=== PATIENT | male | born 1995 | race Caucasian/White ===

== ENCOUNTER 2017-03-19 15:29 | Emergency (ER) | payer OTHER ==
[2017-03-19 15:36] VITALS: BP 120/75
--- NOTE | 2017-03-19 16:47 | ED Physician Documentation ---
History of Present Illness - Stated complaint Stated Complaint: CHEST PX/COUGH - Chief complaint Chief Complaint: General - History obtained from History obtained from: Patient - History of Present Illness Timing: Other (Previously healthy 21-year-old woman has been sick for a week with cough and cold symptoms, rhinorrhea, but no fevers. The cough is productive. Starting yesterday he has focal left-sided chest pain especially with deep breathing and coughing. No shortness of breath.) Review of Systems Constitutional: denies: Fever, Chills Ears: reports: Ear pain Nose: reports: Rhinorrhea / runny nose, Congestion Throat: denies: Oral lesions / sores, Sore throat Cardiac: reports: Chest pain / pressure Respiratory: reports: Cough. denies: Dyspnea PD PAST MEDICAL HISTORY - Present Medications Home Medications: Ambulatory Orders Medication Instructions Recorded Confirmed guaiFENesin/CODEINE [Robitussin AC] 5 - 10 ml PO Q6H PRN #120 ml 03/19/17 - Allergies Allergies/Adverse Reactions: Allergies Allergy/AdvReac Type Severity Reaction Status Date / Time No Known Drug Allergies Allergy Verified 03/19/17 15:36 PD ED PE NORMAL - Vitals Vital signs reviewed: Yes - General General: Alert and oriented X 3, No acute distress - HEENT HEENT: PERRL, EOMI, Ears normal, Pharynx benign - Neck Neck: Supple, no meningeal sign, No bony TTP - Cardiac Cardiac: RRR, No murmur - Respiratory Respiratory: No respiratory distress, Clear bilaterally - Abdomen Abdomen: Non tender - Derm Derm: No rash - Neuro Neuro: Alert and oriented X 3, Normal speech Results - Vitals Vitals: Vital Signs - 24 hr 03/19/17 15:34 Temperature 37.1 C Heart Rate 73 Respiratory 20 Rate Blood Pressure 120/75 O2 Saturation 98 Oxygen O2 Source Room air - Rads (name of study) 2v chest Radiology: EMP read contemporaneously (normal) Departure - Departure Disposition: 01 Home, Self Care Clinical Impression: Cough Chest wall muscle strain Qualifiers: Encounter type: initial encounter Qualified Code(s): S29.011A - Strain of muscle and tendon of front wall of thorax, initial encounter Condition: Good Record reviewed to determine appropriate education?: Yes Instructions: ED URI Viral Prescriptions: guaiFENesin/CODEINE [Robitussin AC] 5 - 10 ml PO Q6H PRN #120 ml PRN Reason: Cough Comments: Call your doctor to arrange a follow up appointment. Make the next available appointment. In the interim return anytime if worse or if new symptoms develop.
--- NOTE | 2017-03-19 17:14 | XRAY Preliminary Report ---
Exam: XR Chest 2 View PA/LAT IMPRESSION: No acute intrathoracic plain film abnormality. [facility] SITE ID: [id number]
--- NOTE | 2017-03-19 17:16 | XRAY Report ---
EXAM: CHEST RADIOGRAPHY EXAM DATE: 03/19/2017 04:49 PM. CLINICAL HISTORY: Cough, chest pain. COMPARISON: None. TECHNIQUE: 2 views. FINDINGS: Lungs/Pleura: No focal opacities evident. No pleural effusion. No pneumothorax. Normal volumes. Mediastinum: Heart and mediastinal contours are unremarkable. Other: None. IMPRESSION: No acute intrathoracic plain film abnormality. [facility] Referring Provider Line: [phone] SITE ID: [id number]
== END 2017-03-19 17:27 | disposition home or self-care (01) ==
LOC: ED 15:29
DX: R05 Cough (principal); S29.011A Strain of muscle and tendon of front wall of thorax, initial encounter; X58.XXXA Exposure to other specified factors, initial encounter
CPT/HCPCS: 71020; 99282; 99283